=== PATIENT | male | born 1985 | race Hispanic/Latino ===

== ENCOUNTER 2018-07-20 15:49 | Emergency (ER) | payer SELFPAY ==
[2018-07-20] MEDS ORDERED: NACL 0.9% 500 ML 500 ML IV ONE (16:45)
[2018-07-20 17:12] LABS: Basophils # (Auto) 0.1 K/mm3 (0.0-0.1); Basophils % (Auto) 0.5 % (0.0-1.8); Eosinophils # (Auto) 0.2 K/mm3 (0.0-0.4); Eosinophils % (Auto) 1.1 % (0.0-4.3); Hematocrit 41.7 % (35.5-45.6); Hemoglobin 13.9 gm/dl (11.8-15.2); Lymphocytes # (Auto) 1.8 K/mm3 (1.2-5.4); Lymphocytes % (Auto) 12.5 % (13.4-35.0); Mean Corpuscular HGB Conc 34 % (32-34); Mean Corpuscular Hemoglobin 29 pg (28-32); Mean Corpuscular Volume 87 fl (84-94); Monocytes # (Auto) 0.9 K/mm3 (0.0-0.8); Platelet Count 208 K/mm3 (140-440); Red Blood Count 4.78 M/mm3 (3.65-5.03); Red Cell Distribution Width 13.8 % (13.2-15.2)
[2018-07-20] MEDS ORDERED: ZOFRAN IV ONE (17:20)
[2018-07-20] MEDS ORDERED: SUBLIMAZE IV ONE (17:20)
--- NOTE | 2018-07-20 17:25 | XRay Report ---
FINAL REPORT PROCEDURE: XR CHEST 1V AP TECHNIQUE: Chest radiograph anteroposterior view. CPT 14251 HISTORY: chest pain COMPARISON: No prior studies are available for comparison. FINDINGS: Heart: Normal. Mediastinum/Vessels: Normal. Lungs/Pleural space: Normal. Bony thorax: No acute osseous abnormality. Life support devices: None. IMPRESSION: No acute cardiopulmonary abnormality.
[2018-07-20 17:32] LABS: BUN/Creatinine Ratio 14; Blood Urea Nitrogen 13 mg/dL (9-20); Calcium 8.8 mg/dL (8.4-10.2); Hemolysis Index 17
[2018-07-20 18:06] LABS: Bilirubin,Urine NEG (Negative); Blood,Urine NEG (Negative); Color,Urine Yellow (Yellow); Hyaline Casts,Urine 1 /LPF; Mucus,Urine FEW /HPF; Protein,Urine <15 mg/dL mg/dL (Negative); Urobilinogen,Urine < 2.0 mg/dL (<2.0)
--- NOTE | 2018-07-20 19:33 | Emergency Department Report ---
HPI - General Chief Complaint: Syncope Time Seen by Provider: 07/20/18 16:44 - HPI HPI: The patient is a 33-year-old male who presents for evaluation of lightheadedness and chest pain. The patient reports that we will 2 hours prior to arrival he developed cellulitis of lightheadedness as dizziness, severe, exacerbated with position changes. He subsequently developed a transient episode of left-sided chest pain, aching in quality, exacerbated with movement. He believes that his chest pain was secondary to his long standing anxiety. The patient denies fever, neck pain, parasthesias, dyspnea, cough, hemoptysis, palpitations, dizziness, syncope, unilateral leg swelling, calf muscle pain. Patient also denies cocaine or other stimulant use, history of DVT or PE, recent immobilization, or history of cancer. ED Past Medical Hx - Past Medical History Hx Diabetes: Yes (IDDM with pump) - Surgical History Past Surgical History?: No - Social History Smoking Status: Never Smoker Substance Use Type: None - Medications Home Medications: Home Medications Medication Instructions Recorded Confirmed Last Taken Type HYDROcodone/APAP 5-325 [[place] 1 each PO Q6HR PRN #14 tablet 07/20/18 Unknown Rx 5/325] Ondansetron [Zofran TAB] 4 mg PO Q8HR PRN #15 tablet 07/20/18 Unknown Rx ED Review of Systems ROS: Stated complaint: CP Other details as noted in HPI Constitutional: reports dizziness denies: fever ENT: denies: throat or neck pain Respiratory: denies: cough, shortness of breath Cardiovascular: reports: chest pain Endocrine: denies unexplained weight loss or gain Gastrointestinal: denies: abdominal pain, nausea Genitourinary: denies: dysuria Musculoskeletal: denies: leg swelling Skin: denies: rash Neurological: denies: headache Hematological/Lymphatic: denies: easy bleeding or easy bruising Psych: denies sadness or hopelessness Physical Exam - Physical Exam Vital Signs: Vital Signs 07/20/18 07/20/18 07/20/18 16:30 17:00 17:30 Temperature 98.3 F Pulse Rate 75 86 88 Respiratory 7 L 13 14 Rate Blood Pressure 153/67 153/67 153/67 O2 Sat by Pulse 100 99 100 Oximetry 07/20/18 07/20/18 07/20/18 18:00 18:30 19:00 Temperature Pulse Rate 79 88 75 Respiratory 16 10 L 11 L Rate Blood Pressure 114/73 114/73 108/58 O2 Sat by Pulse 99 97 Oximetry Physical Exam: General: well-nourished, well-developed, no acute distress Head: Normocephalic, atraumatic Eyes: normal sclera ENT: Mucous membranes are pale and dry Neck: No neck stiffness, no cervical adenopathy Respiratory: Breath sounds equal bilaterally, no wheezing, rales, or rhonchi Cardio: S1 and S2 present, no murmurs, rubs, gallops, capillary refill is delayed Abdomen: Normoactive bowel sounds, soft abdomen, no rigidity, no guarding or rebound tenderness Musc: No pitting edema Skin: No rash Neuro: alert oriented x4, normal cognition, speech normal, PERRL, EOM intact, no facial drooping, no uvula or tongue deviation on protrusion, no deficit with rotation of neck or shoulder shrug, no obvious gross motor deficit in the upper or lower extremities with flexion or extension at the shoulder, elbow, wrist, hip, knee, or ankle bilaterally, no obvious gross sensation deficit to crude touch or 2 pt discrimination, 2+ symmetric reflexes on DTR testing, no coordination deficit with [id number] or [id number] testing Psych: Normal affect ED Course Vital Signs 07/20/18 07/20/18 07/20/18 16:30 17:00 17:30 Temperature 98.3 F Pulse Rate 75 86 88 Respiratory 7 L 13 14 Rate Blood Pressure 153/67 153/67 153/67 O2 Sat by Pulse 100 99 100 Oximetry 07/20/18 07/20/18 07/20/18 18:00 18:30 19:00 Temperature Pulse Rate 79 88 75 Respiratory 16 10 L 11 L Rate Blood Pressure 114/73 114/73 108/58 O2 Sat by Pulse 99 97 Oximetry ED Medical Decision Making - Lab Data Result diagrams: 07/20/18 16:48 07/20/18 16:48 - Medical Decision Making The patient was seen and examined by myself. The patient is placed on a database operator and continuous pulse ox. On initial evaluation, the patient was found to be in no distress. As there are no neuro deficits or other findings on examination concerning for acute intracranial disease process, a CAT scan of the head is not indicated for re-eval his dizziness at this time. IV access is established and the patient is given a normal saline fluid bolus for treatment of his dehydration, IV Benadryl for his dizziness, and IV fentantyl for his pain. Lab results reveal a mildly elevated glucose level of 200, and a normal troponin level. The patient was reevaluated and reported that their symptoms were markedly improved. As the patient has a MARGARET risk score less than 2, and a well's score less than 2, the patient is at low risk of ACS or pulmonary emboli etiology of their symptoms. The patient is stable for discharge with outpatient follow-up. The patient is given follow-up and return instructions. The patient expressed understanding and agreed with the plan. The patient is discharged in stable condition. Critical care attestation.: If time is entered above; I have spent that time in minutes in the direct care of this critically ill patient, excluding procedure time. ED Disposition Clinical Impression: Orthostatic syncope, Acute hyperglycemia, Acute chest pain Disposition: TO HOME OR SELFCARE Is pt being admited?: No Does the pt Need Aspirin: No Condition: Stable Instructions: Syncope (ED), Chest Pain (ED), Dehydration (ED), Diabetic Hyperglycemia (ED) Referrals: [facility] [Outside] - 3-5 Days Time of Disposition: 19:29
[2018-07-20] MEDS ORDERED: HumuLIN R SUB-Q ONE (20:22)
[2018-07-20] MEDS ORDERED: LEVAQUIN PO ONE (20:31)
--- NOTE | 2018-07-20 20:31 | Emergency Department Report ---
Blank Doc - Documentation Documentation: Patient is 33 years old male with history of type 1 diabetes on insulin. Patient was seen by my colleague Dr. Aj in was written to be discharged. Patient stated that he is not feeling well and he is having muscle spasm all over. His blood glucose is 350. I reexamined the patient.patient is in no acute distress. Heart exam is normal. Lungs is clear almost side. Abdomen is soft nontender no rebound tenderness or guarding. Neck no evidence of meningitis . I reviewed patient lab, no evidence of DKA. Patient on mind is 18. I wrote for insulin 5 units and Toradol 60 IM for pain. I also noticed that patient had a white count of 14,000 with left shift, unknown source but patient is having urinary symptoms, I treat patient with Levaquin 500 milligrams daily for 7 days. Advised patient to follow-up with his primary care physician and to return to the ER if his symptoms are not improving.
[2018-07-20] MEDS ORDERED: TORADOL IM ONE (20:33)
[2018-07-21 01:13] VITALS: BP 125/74
== END 2018-07-20 22:00 | disposition home or self-care (01) ==
LOC: ED 15:49
DX: R55 Syncope and collapse (principal); R07.89 Other chest pain; E11.65 Type 2 diabetes mellitus with hyperglycemia; Z79.4 Long term (current) use of insulin
CPT/HCPCS: 36415; 71045; 80048; 81001; 82805; 82962; 84484; 85025; 93005; 93010; 96361; 96372; 96374; 96375; 99285; J1885; J2405; J3010; J1815